=== PATIENT | male | born 1980 | race African-American/Black ===

== ENCOUNTER → 2021-09-05 | Outpatient (REF) | LOC: M PLAIMG 12:08 | PROVIDERS: ATTEND Internal Medicine | DX: M51.36 Other intervertebral disc degeneration, lumbar region (principal); M54.50 Low back pain, unspecified; M25.562 Pain in left knee ==

== ENCOUNTER 2021-12-22 19:15 | Emergency (ER) | payer OTHER ==
[~2021-12-22] VITALS: Ht 182.9 cm; Wt 103.6 kg
== END 2021-12-23 00:03 | disposition left against medical advice (07) ==
LOC: M ED 19:15
DX: Z53.21 Procedure and treatment not carried out due to patient leaving prior to being seen by health care provider (principal)